=== PATIENT | female | born 1975 | race Caucasian/White ===

== ENCOUNTER 2019-02-07 22:21 | Emergency (ER) | payer OTHER ==
[~2019-02-07] VITALS: Wt 86.6 kg
--- NOTE | 2019-02-07 22:49 | ERD ---
ER Documentation Chief Complaint Chief Complaint Vaginal spotting HPI The patient is a 44-year-old female, presenting to the ER because of vaginal spotting for the last 17 days, she has not seen a hotel manager yet. She complains of vague and diffuse abdominal pain for the last 2 days with dysuria. He denies fever, chills, neck pain, chest pain, dyspnea. She denies vomiting, diarrhea, constipation. She normally has irregular menstrual period, denies smoking or drinking Past medical history: Fibroid, anemia Past surgical history: Gastric sleeve 3 months ago ROS All systems reviewed and are negative except as per history of present illness. Medications Home Meds Active Scripts Ibuprofen* (Motrin*) 600 Mg Tab, 600 MG PO Q6H PRN for PAIN, #20 TAB Prov:LINDA MURPHY MD 02/08/19 Allergies Allergies: Coded Allergies: No Known Allergy (Unverified , 02/07/19) Physical Exam Vitals Vital Signs Date Temp Pulse Resp B/P (MAP) Pulse Ox O2 O2 Flow FiO2 Time Delivery Rate 02/08/19 63 121/76 100 Room Air 02:22 (91) 02/08/19 51 16 123/77 100 Room Air 00:17 (92) 02/07/19 98.3 66 22 193/79 99 22:27 (117) Physical Exam Const: No acute distress. Head: Atraumatic. Eyes: Normal Conjunctiva. ENT: Normal External Ears, Nose and Mouth. Neck: Full range of motion. No meningismus. Resp: Clear to auscultation bilaterally. Cardio: Regular rate and rhythm. Abd: Soft, non distended, normal bowel sounds, minimal and vague and diffuse abdominal discomfort, no rigidity/rebound/CVA tenderness Skin: No petechiae or rashes. Back: No midline or flank tenderness. Ext: No cyanosis, or edema. Neur: Awake and alert. No focal deficit Psych: Normal Mood and Affect. Result Diagram: 02/07/19 2300 02/07/192299 Results 24 hrs Laboratory Tests Test 02/07/19 23:00 02/07/19 23:12 02/07/19 23:18 White Blood Count 7.8 10^3/ul Red Blood Count 3.99 10^6/ul Hemoglobin 10.1 g/dl Hematocrit 31.5 % Mean Corpuscular Volume 78.9 fl Mean Corpuscular Hemoglobin 25.3 pg Mean Corpuscular 32.1 g/dl Hemoglobin Concent Red Cell Distribution Width 14.0 % Platelet Count 416 10^3/UL Mean Platelet Volume 9.3 fl Immature Granulocytes % 0.900 % Neutrophils % 51.2 % Lymphocytes % 39.2 % Monocytes % 7.1 % Eosinophils % 0.8 % Basophils % 0.8 % Nucleated Red Blood Cells % 0.0 /100WBC Immature Granulocytes # 0.070 10^3/ul Neutrophils # 4.0 10^3/ul Lymphocytes # 3.0 10^3/ul Monocytes # 0.6 10^3/ul Eosinophils # 0.1 10^3/ul Basophils # 0.1 10^3/ul Nucleated Red Blood Cells # 0.0 10^3/ul Sodium Level 139 mmol/L Potassium Level 3.9 mmol/L Chloride Level 107 mmol/L Carbon Dioxide Level 23 mmol/L Anion Gap 9 Blood Urea Nitrogen 15 mg/dl Creatinine 0.68 mg/dl Est Glomerular Filtrat Rate mL/min > 60 mL/min Glucose Level 91 mg/dl Calcium Level 9.0 mg/dl Total Bilirubin 0.3 mg/dl Direct Bilirubin 0.00 mg/dl Indirect Bilirubin 0.3 mg/dl Aspartate Amino Transf (AST/SGOT) 18 IU/L Alanine 15 IU/L Aminotransferase (ALT/SGPT) Alkaline Phosphatase 62 IU/L Total Protein 7.3 g/dl Albumin 4.3 g/dl Globulin 3.00 g/dl Albumin/Globulin Ratio 1.43 Lipase 63 U/L Bedside Urine pH (LAB) 5.5 Bedside Urine Protein (LAB) 2+ Bedside Urine Glucose (UA) Negative Bedside Urine Ketones (LAB) Trace Bedside Urine Blood 3+ Bedside Urine Nitrite (LAB) Negative Bedside Urine Leukocyte Esterase Negative (L POC Beta HCG, Qualitative NEGATIVE Current Medications Medications Dose Sig/Cesar Start Time Status Last (Trade) Ordered Route PRN Stop Time Admin Dose Reason Admin Morphine 2 mg ONCE STAT 02/07/19 DC 02/07/19 Sulfate IV 22:54 23:06 (morphine) 02/07/19 22:58 Ondansetron 4 mg ONCE STAT 02/07/19 DC 02/07/19 HCl (Zofran IV 22:54 23:06 Inj) 02/07/19 22:58 Procedures/[address], [place] [address] Radiology Main Line: [phone] DIAGNOSTIC IMAGING REPORT Patient: JAYESH DENNISON : 1975 Age: 44 Sex: F MR #: [id number] DOS: 02/07/192253 Ordering MD: LINDA MURPHY MD Location: E/R Room/Bed: PROCEDURE: US abdomen limited CLINICAL INDICATION: Abdominal pain. TECHNIQUE: Multiple real-time sonographic images of the right upper quadrant of the abdomen were obtained. COMPARISON: None. FINDINGS: Liver parenchymal echogenicity is increased. Liver measures 18.8 cm in length. There is no visible focal liver lesion. There is no intrahepatic biliary ductal dilatation. Common bile duct measures 3 mm in diameter, within normal limits. Limited Doppler interrogation of main portal vein demonstrates antegrade flow. There is no gallstone, gallbladder wall thickening or pericholecystic fluid. No ascites is seen. Pancreas is obscured by the overlying bowel gas. Images of the right kidney demonstrate no hydronephrosis. Right kidney measures 10.3 cm. IMPRESSION: 1. Mild hepatomegaly and diffuse hepatic steatosis. 2. No visible focal liver lesion or biliary ductal dilatation. 3. No evidence of cholelithiasis or acute cholecystitis. RPTAT:HAJM Physician Moisés Date Time Electronically viewed and signed by Physician Moisés on 02/07/2019 23:55 RM/ CC: LINDA MURPHY MD [id number] [place] [address] Radiology Main Line: [phone] DIAGNOSTIC IMAGING REPORT Patient: JAYESH DENNISON : 1975 Age: 44 Sex: F MR #: [id number] DOS: 02/07/192253 Ordering MD: LINDA MURPHY MD Location: E/R Room/Bed: PROCEDURE: US Pelvis with transvaginal. CLINICAL INDICATION: Pelvic pain, vaginal bleeding. Last menstrual period 01/22/2019 TECHNIQUE: Multiple sonographic images of the pelvis were obtained utilizing a transabdominal and endovaginal technique. The images were reviewed on a PACS workstation. COMPARISON: None. FINDINGS: The uterus measures 13.1 x 6.8 x 8.4 cm. Multiple rounded heterogeneous echotexture uterine masses suggestive of fibroids are seen the largest a 4.3 cm submucosal fibroid in the central fundus and body. The thickness of the endometrium in the lower uterine segment equals 3.7 mm. The right ovary measures 3.3 x 2 x 2.3 cm and is unremarkable. The left ovary is not seen. Color flow and spectral analysis demonstrates normal arterial and venous flow in the right ovary. No adnexal mass or free intrapelvic fluid is seen. IMPRESSION: Enlarged uterus. Consistent with multiple uterine fibroids the largest a 4.3 cm submucosal fibroid in the central fundus and body. Left ovary not seen. Please see above. RPTAT: HJES .Beau Bernal MD, MD Date Time Electronically viewed and signed by .Beau Bernal MD, MD on 02/08/2019 01:54 .S/ CC: LINDA MURPHY MD [id number] MEDICAL MAKING DECISION: The patient is a 44-year-old female, presenting with acute abdominal pain, most likely due to fibroid and hepatic steatosis. She was treated with morphine 2 mg IV for pain, Zofran 4 mg IV for nausea with good response, is stable for outpatient follow-up The differential diagnoses considered include but are not limited to cholelith iasis, cholecystitis, choledocholithiasis, cholangitis, pancreatitis, hepatitis, gastritis, peptic ulcer disease, gastric ulcer, appendicitis, cystitis, diverticulitis, partial small bowel obstruction. Departure Diagnosis: Primary Impression: Fibroid Additional Impressions: Hepatic steatosis Anemia Condition: Good Comments She was discharged with Motrin The patient's blood pressure was elevated (>120/80) but appears stable without evidence of hypertension emergency or urgency. The patient was counseled about the risks of hypertension and urged to pursue outpatient monitoring and therapy within a week with their primary care physician. I discussed the findings with the patient. I advised the patient to follow-up with the primary physician in about 2-3 days for reevaluation and referral to gynecology, sooner if needed and return if any concern. Disclaimer: Inadvertent spelling and grammatical errors are likely due to EHR/dictation software use and do not reflect on the overall quality of patient care. Also, please note that the electronic time recorded on this note does not necessarily reflect the actual time of the patient encounter. LINDA MURPHY MD February 07, 2019 22:49
[2019-02-07] MEDS ORDERED: ONDANSETRON 4 MG INJ IV STA (22:54)
[2019-02-07] MEDS ORDERED: morphine 2 MG INJ IV STA (22:54)
[2019-02-08 00:17] VITALS: RESP 16
[2019-02-08] MEDS ORDERED: IBUP-1542 PO (02:08)
[2019-02-08 02:22] VITALS: BP 121/76; PULSE 63
== END 2019-02-08 02:23 | disposition home or self-care (01) ==
LOC: E/R 22:21
DX: D25.9 Leiomyoma of uterus, unspecified (principal); D64.9 Anemia, unspecified; K76.0 Fatty (change of) liver, not elsewhere classified; R10.2 Pelvic and perineal pain
CPT/HCPCS: 36415; 76705; 76830; 76856; 80053; 81003; 81025; 83690; 85025; 96374; 96375; 99285; J2270; J2405

== ENCOUNTER 2019-03-03 23:39 | Emergency (ER) | payer OTHER ==
[~2019-03-03] VITALS: Ht 152.4 cm; Wt 86.9 kg
[~2019-03-03 23:39] MED LIST: IBUP-1542 PO
[2019-03-03 23:42] VITALS: Ht 152.4 cm; Wt 86.9 kg
[2019-03-04] MEDS ORDERED: KETOROLAC 30 MG INJ IM STA (00:13)
--- NOTE | 2019-03-04 00:13 | ERD ---
ER Documentation Chief Complaint Chief Complaint R ANKLE SWELLING X 2 HOURS, PT DENIES INJURY HPI This is a 44-year-old female presents here to emerge department with complaints of right ankle pain that started 2 hours prior to arrival here in the emergency department. Patient stated she did not have any direct injury to her right ankle but while she was walking, missed a step, heard a popping sound to his right ankle. LMP: Denies headache, head injury, loss of consciousness, dizziness, neck pain, neck stiffness, throat pain, difficulty swallowing, difficulty breathing lying flat, shoulder pain, chest pain, back pain, abdominal pain, nausea, vomiting, constipation, diarrhea, urinary symptoms, or possibility being , loss of bowel and bladder control, trauma, injury, falls, difficulty walking due to pain, numbness or tingling sensation, calf pain, recent travel, recent major surgery in the last 3 weeks, calf pain, recent long travel, recent exposure to any illness, recent antibiotic use in the last 3 months, fever, chills, seizures. Past medical history: Surgical history: Social: Denies smoking, use of alcoholic beverages, use of illegal drugs. ROS All systems reviewed and are negative except as per history of present illness. Medications Home Meds Active Scripts Omeprazole* (Omeprazole*) 40 Mg Capsule.dr, 40 MG PO DAILY, #30 CAP Prov:PASILABAN,BRITTNEYAR F 03/04/19 Ibuprofen* (Motrin*) 800 Mg Tab, 800 MG PO Q6H PRN for PAIN AND OR ELEVATED TEMP, #30 TAB Prov:PASILABAN,BRITTNEYAR F 03/04/19 Ibuprofen* (Motrin*) 600 Mg Tab, 600 MG PO Q6H PRN for PAIN, #20 TAB Prov:LINDA MURPHY MD 02/08/19 Allergies Allergies: Coded Allergies: No Known Allergy (Unverified , 02/07/19) PMhx/Soc History of Surgery: Yes (gastric surgery ) Anesthesia Reaction: No Hx Neurological Disorder: No Hx Respiratory Disorders: No Hx Miscellaneous Medical Probl: Yes (anemia,fibroma) Hx Alcohol Use: No Hx Substance Use: No Hx Tobacco Use: No Physical Exam Vitals Physical Exam Const: No acute distress Head: Atraumatic Eyes: Normal Conjunctiva ENT: Normal External Ears, Nose and Mouth. Neck: Full range of motion. No meningismus. Resp: Clear to auscultation bilaterally Cardio: Regular rate and rhythm, no murmurs Abd: Soft, non tender, non distended. Normal bowel sounds Skin: No petechiae or rashes Back: No midline or flank tenderness Ext: No cyanosis, or edema. Right ankle: Swelling noted to lateral area. Tenderness to palpation to lateral area. Good and full range of motion. Right foot: No obvious deformity. No tenderness. Right pedal pulses within normal limits. Has good and full range of motion of right toes. Capillary refill to right lower extremity is less than 2 seconds. Bilateral knees are symmetrical. Bilateral hips are stable and unremarkable. Left lower extremity is unremarkable. No calf tenderness bilaterally. No neurovascular deficits. Neur: Awake and alert. No neurological deficits. Psych: Normal Mood and Affect Results 24 hrs Laboratory Tests Test 03/04/19 00:45 POC Beta HCG, Qualitative NEGATIVE Current Medications Medications Dose Sig/Cesar Start Time Status Last (Trade) Ordered Route PRN Stop Time Admin Dose Reason Admin Ketorolac 30 mg ONCE STAT 03/04/19 DC 03/04/19 Tromethamine IM 00:13 00:52 (Toradol) 03/04/19 00:15 Procedures/MDM Diagnostic tests: POC urine : Negative. X-ray of the right ankle: No fracture or dislocation of the right ankle. Treatment: Toradol IM. Claudio wrap. Crutches and crutch training was also provided by EMT. Re-evaluation: No neurovascular deficits prior to and after the application of Claudio wrap. Differential diagnosis I have low suspicion for displaced fracture, open fracture, compartment syndrome, DVT. Final diagnosis: Ankle pain. Prescription: Motrin. Omeprazole. Follow-up with PCP in the next 24-48 hours. Come back here in the emergency department for any new symptoms or any worsening symptoms. All questions and concerns were answered. Patient and family members verbalized understanding and agreed with plan of care. Hemodynamically stable on discharge. Departure Diagnosis: Primary Impression: Ankle pain Condition: Stable Additional Instructions: Follow-up with PCP in the next 24-48 hours. Come back here in the emergency department for any new symptoms or any worsening symptoms. DIAN SALAS Mar 04, 2019 00:13
[2019-03-04] MEDS ORDERED: IBUP800T48 PO (03:47)
[2019-03-04] MEDS ORDERED: OMEP40CA6 PO (03:48)
[2019-03-04 04:10] VITALS: BP 132/64; PULSE 84; RESP 17
== END 2019-03-04 04:10 | disposition home or self-care (01) ==
LOC: FTE 23:39
DX: M25.571 Pain in right ankle and joints of right foot (principal)
CPT/HCPCS: 73610; 81025; 96372; 99284; J1885

== ENCOUNTER 2019-04-18 09:25 | Emergency (ER) | payer OTHER ==
[~2019-04-18] VITALS: Wt 78.0 kg
[~2019-04-18 09:25] MED LIST changes: +HYDR-4011 PO; +IBUP800T48 PO; +NAPR-985 PO; +NITR-58 PO; +NORE5TAB15 PO; +OMEP40CA6 PO
[2019-04-18] MEDS ORDERED: ONDANSETRON 4 MG INJ IV STA (10:22)
[2019-04-18] MEDS ORDERED: SOD CHLORIDE 0.9% 1,000 ML IV STA (10:22)
[2019-04-18] MEDS ORDERED: morphine 4 MG/ML VIAL IV STA (10:22)
--- NOTE | 2019-04-18 10:28 | ERD ---
ER Documentation Chief Complaint Chief Complaint has fibroids, vag bleeding HPI This is a 44-year-old female patient who presents emergency see room with complaint of severe pelvic pain and increased vaginal bleeding. Patient states she has been diagnosed with fibroids and is awaiting hysterectomy. States she was seen at urgent care yesterday for severe pain and pain has continued today. Her cosmetics counter manager placed her on unknown control pills 2 weeks ago to treat bleeding and she states it has not improved. States she is taking iron for her anemia. States she has appointment with Dr. Daniel Rojo, surgeon, tomorrow. States that she is using pads and going through approximately 2 pads per hour. Patient had endometrial biopsy on March 13 that showed benign polyps. Patient is alert, appropriate, mild distress due to pain and hemodynamically stable at time of evaluation. ROS All systems reviewed and are negative except as per history of present illness. Medications Home Meds Active Scripts Naproxen* (Naprosyn*) 500 Mg Tablet, 500 MG PO BID PRN for PAIN AND/OR INFLAMMATION, #30 TAB Prov:PHI MCDANIEL PA-C 04/19/19 Norethindrone (Aygestin) 5 Mg Tab, 5 MG PO TID, #30 TAB Prov:PHI MCDANIEL PA-C 04/19/19 Hydrocodone/Acetaminophen (Steptoe 5-325 Tablet) 1 Each Tablet, 1 EACH PO TID PRN for PAIN for 5 Days, #7 TAB Prov:JENNIFER JESUS NP 04/18/19 Nitrofurantoin Monohyd Macrocr* (Macrobid*) 100 Mg Capsr, 100 MG PO BID for 5 Days, #10 CAP Prov:JENNIFER JESUS NP 04/18/19 Omeprazole* (Omeprazole*) 40 Mg Capsule.dr, 40 MG PO DAILY, #30 CAP Prov:PASILABRITTNEY VOGTAR F 03/04/19 Ibuprofen* (Motrin*) 800 Mg Tab, 800 MG PO Q6H PRN for PAIN AND OR ELEVATED TEMP, #30 TAB Prov:PASILABAN,BRITTNEYAR F 03/04/19 Ibuprofen* (Motrin*) 600 Mg Tab, 600 MG PO Q6H PRN for PAIN, #20 TAB Prov:LINDA MURPHY MD 02/08/19 Allergies Allergies: Coded Allergies: No Known Allergy (Unverified , 02/07/19) PMhx/Soc Medical and Surgical Hx: pt denies Medical Hx History of Surgery: No Anesthesia Reaction: No Hx Neurological Disorder: No Hx Respiratory Disorders: No Hx Cardiac Disorders: No Hx Psychiatric Problems: No Hx Miscellaneous Medical Probl: No Hx Alcohol Use: No Hx Substance Use: No Hx Tobacco Use: No Smoking Status: Never smoker FmHx Family History: diabetes Physical Exam Vitals Vital Signs Date Temp Pulse Resp B/P (MAP) Pulse Ox O2 O2 Flow FiO2 Time Delivery Rate 04/18/19 98.6 50 18 126/70 95 Room Air 13:28 (88) 04/18/19 98.1 63 18 150/78 99 09:27 (102) Physical Exam Const: No acute distress Head: Atraumatic Eyes: Normal Conjunctiva, PERRL, EOMI ENT: Normal External Ears, Nose and Mouth. Pharynx pink, moist, no lesions, no exudate, no petechiae. Neck: Full range of motion. No meningismus. No lymphadenopathy Resp: Clear to auscultation bilaterally Cardio: Regular rate and rhythm, no murmurs Abd: Soft, non distended. Normal bowel sounds, no guarding, no rebound, tenderness over RLQ/LLQ Skin: No petechiae or rashes, no bruising, skin turgor less than 2 seconds, skin color normal for ethnicity Back: No midline or flank tenderness, No CVT Neur: Awake and alert, clear speech, steady gait Psych: Normal Mood and Affect Result Diagram: 04/18/19 1035 04/18/19 1035 Results 24 hrs Laboratory Tests Test 04/18/19 10:35 04/18/19 10:36 04/18/19 10:44 White Blood Count 6.9 10^3/ul Red Blood Count 4.80 10^6/ul Hemoglobin 12.0 g/dl Hematocrit 39.1 % Mean Corpuscular Volume 81.5 fl Mean Corpuscular Hemoglobin 25.0 pg Mean Corpuscular 30.7 g/dl Hemoglobin Concent Red Cell Distribution Width 14.9 % Platelet Count 327 10^3/UL Mean Platelet Volume 9.4 fl Immature Granulocytes % 0.300 % Neutrophils % 65.2 % Lymphocytes % 25.1 % Monocytes % 7.6 % Eosinophils % 1.4 % Basophils % 0.4 % Nucleated Red Blood Cells % 0.0 /100WBC Immature Granulocytes # 0.020 10^3/ul Neutrophils # 4.5 10^3/ul Lymphocytes # 1.7 10^3/ul Monocytes # 0.5 10^3/ul Eosinophils # 0.1 10^3/ul Basophils # 0.0 10^3/ul Nucleated Red Blood Cells # 0.0 10^3/ul Prothrombin Time 13.3 Sec Prothrombin Time Ratio 1.0 INR International 1.00 Normalized Ratio Activated Partial Thromboplast 31.7 Sec Time Sodium Level 140 mmol/L Potassium Level 4.0 mmol/L Chloride Level 105 mmol/L Carbon Dioxide Level 29 mmol/L Anion Gap 6 Blood Urea Nitrogen 13 mg/dl Creatinine 0.76 mg/dl Est Glomerular Filtrat > 60 mL/min Rate mL/min Glucose Level 92 mg/dl Calcium Level 9.4 mg/dl Urine Color RED Urine Clarity CLEAR Urine pH 6.0 Urine Specific [place] 1.006 Urine Ketones NEGATIVE mg/dL Urine Nitrite NEGATIVE mg/dL Urine Bilirubin NEGATIVE mg/dL Urine Urobilinogen NEGATIVE mg/dL Urine Leukocyte Esterase TRACE Emanuel/ul Urine Microscopic RBC > 182 /HPF Urine Microscopic WBC 14 /HPF Urine Hemoglobin 3+ mg/dL Urine Glucose NEGATIVE mg/dL Urine Total Protein 1+ mg/dl POC Beta HCG, Qualitative NEGATIVE Current Medications Medications Dose Sig/Cesar Start Time Status Last (Trade) Ordered Route PRN Stop Time Admin Dose Reason Admin Sodium 1,000 ml @ Q1H STAT 04/18/19 DC 04/18/19 Chloride 1,000 mls/hr IV 10:22 04/18/19 10:43 11:21 Morphine 4 mg ONCE STAT 04/18/19 DC 04/18/19 Sulfate IV 10:22 04/18/19 10:42 (morphine) 10:28 Ondansetron 4 mg ONCE STAT 04/18/19 DC 04/18/19 HCl (Zofran IV 10:22 04/18/19 10:43 Inj) 10:28 Procedures/MDM PROCEDURES/MDM DIAGNOSTIC IMAGING: Read by radiologist. US PELVIS IMPRESSION: 1. Enlarged heterogeneous uterus with multiple leiomyomas the largest measuring 5 cm. 2. Homogeneous slightly thickened endometrium maximal AP diameter 1.16 cm. 3. Nonvisualization of the left ovary. 4. Unremarkable right ovary without ultrasonic evidence of ovarian torsion. 5. No adnexal masses or free fluid demonstrated. LAB INTERPRETATION: CBC: no leukocytosis, normal H/H BMP: no electrolyte disturbance, normal kidney function, normo glycemia, neg HCG UA: neg nit, +trace leuks, +WBC -Medications: NS, MS, Zofran Patient tolerated medication well with no adverse reactions. Patient reported improvement in pain. -Consultation: Dr. Lowe MDM: Pt reports improvement in pain and overall well-being with today's treatment. As patient remains hemodynamically stable, is not anemic today, and has appo intment scheduled with her surgeon tomorrow, no surgical consult was performed today. Differential includes ectopic , failed , neoplasm, fibroid, hemorrhage, anemia, endometriosis. She will discharged home to follow-up with her surgeon tomorrow. She is to return sooner for fevers, hemorrhaging, new worsening symptoms. Current signs or symptoms do not suggest appendicitis, acu te surgical abdomen, additional concerning signs or symptoms or conditions. The patient was stable with no new complaints during the ER course. Clinically, there is no current evidence to suggest meningitis, sepsis, acute abdomen, pneumonia, stroke, acute coronary syndrome, pulmonary embolism, aortic dissection or any other emergent condition appearing to require further evaluation or hospitalization. Patient counseled regarding my diagnostic impression and care plan. Prior to discharge all questions answered. Pt agrees with treatment plan and understands strict return precautions. Antibiotics initiated today for UTI. There is low suspicion for pyelonephritis, vaginitis, STI, or interstitial cystitis due to absence of clinical findings that would support a diagnosis more serious than uncomplicated UTI. These diagnoses have been considered and excluded clinically. DISPOSITION and PLAN: RX: Steptoe, Macrobid. Pt has ibuprofen at home. Instructed to continue with other prescribed medications such as iron supplement and hormones. The patient has been discharge home to follow-up with community physician. Departure Diagnosis: Primary Impression: Uterine fibroid Uterine leiomyoma location: intramural Qualified Codes: D25.1 - Intramural leiomyoma of uterus Additional Impressions: Vaginal bleeding Cystitis Condition: Stable JENNIFER JESUS NP Apr 18, 2019 10:28
[2019-04-18 13:28] VITALS: BP 126/70; PULSE 50; RESP 18
== END 2019-04-18 13:41 | disposition home or self-care (01) ==
LOC: FTE 09:25
DX: D25.1 Intramural leiomyoma of uterus (principal); N93.9 Abnormal uterine and vaginal bleeding, unspecified; N30.90 Cystitis, unspecified without hematuria
CPT/HCPCS: 36415; 76856; 80048; 81001; 81025; 85025; 85610; 85730; 86850; 86900; 86901; 96374; 96375; 99285; J2270; J2405; J7030

== ENCOUNTER 2019-04-18 21:34 | Emergency (ER) | payer OTHER ==
[~2019-04-18] VITALS: Ht 165.1 cm; Wt 90.0 kg
[2019-04-18 21:35] VITALS: Ht 165.1 cm; Wt 90.0 kg
[2019-04-18] MEDS ORDERED: SOD CHLORIDE 0.9% 1,000 ML IV ONE (23:00)
[2019-04-19] MEDS ORDERED: morphine 4 MG/ML VIAL IV STA (00:56)
[2019-04-19 02:12] VITALS: BP 145/68; PULSE 74; RESP 18
--- NOTE | 2019-04-19 04:39 | ERD ---
ER Documentation Chief Complaint Chief Complaint PT REPORTS HX FIBROIDS AND BLEEDING X 5 DAYS HPI 44-year-old female presents to the emergency department complaining of increasing vaginal bleeding for the past 5 days. She has some mild suprapubic pain. She was seen here earlier and was discharged home with a diagnosis of uterine fibroids and advised to follow-up with her [facility]ENTAL CHAIRSIDE ASSISTANT physician. She returns today because she saw a significant amount of blood while out in public today and she is worried about it. She denies any dizziness, syncope, abdominal pain, or other symptoms at this time. Symptoms are moderate to severe cu rrently. ROS All systems reviewed and are negative except as per history of present illness. Medications Home Meds Active Scripts Naproxen* (Naprosyn*) 500 Mg Tablet, 500 MG PO BID PRN for PAIN AND/OR INFLAMMATION, #30 TAB Prov:PHI MCDANIEL PA-C 04/19/19 Norethindrone (Aygestin) 5 Mg Tab, 5 MG PO TID, #30 TAB Prov:PHI MCDANIEL PA-C 04/19/19 Hydrocodone/Acetaminophen ([place] 5-325 Tablet) 1 Each Tablet, 1 EACH PO TID PRN for PAIN for 5 Days, #7 TAB Prov:JENNIFER JESUS NP 04/18/19 Nitrofurantoin Monohyd Macrocr* (Macrobid*) 100 Mg Capsr, 100 MG PO BID for 5 Days, #10 CAP Prov:JENNIFER JESUS NP 04/18/19 Omeprazole* (Omeprazole*) 40 Mg Capsule.dr, 40 MG PO DAILY, #30 CAP Prov:MARILUZILABRITTNEY VOGTAR F 03/04/19 Ibuprofen* (Motrin*) 800 Mg Tab, 800 MG PO Q6H PRN for PAIN AND OR ELEVATED TEMP, #30 TAB Prov:PASILABRITTNEY VOGTAR F 03/04/19 Ibuprofen* (Motrin*) 600 Mg Tab, 600 MG PO Q6H PRN for PAIN, #20 TAB Prov:LINDA MURPHY MD 02/08/19 Allergies Allergies: Coded Allergies: No Known Allergy (Unverified , 02/07/19) PMhx/Soc History of Surgery: Yes (tummy tuck?) Anesthesia Reaction: No Hx Neurological Disorder: No Hx Respiratory Disorders: No Hx Cardiac Disorders: No Hx Psychiatric Problems: No Hx Miscellaneous Medical Probl: Yes (fibroids,anemia) Hx Alcohol Use: No Hx Substance Use: No Hx Tobacco Use: No Smoking Status: Never smoker FmHx Family History: No diabetes Physical Exam Vitals Vital Signs Date Temp Pulse Resp B/P (MAP) Pulse Ox O2 O2 Flow FiO2 Time Delivery Rate 04/19/19 98.8 74 18 145/68 100 Room Air 02:12 (93) 04/18/19 98.8 73 24 165/90 99 21:35 (115) Physical Exam Const: No acute distress Head: Atraumatic Eyes: Normal Conjunctiva ENT: Normal External Ears, Nose and Mouth. Neck: Full range of motion. No meningismus. Resp: Clear to auscultation bilaterally Cardio: Regular rate and rhythm, no murmurs Abd: Soft, non tender, non distended. Normal bowel sounds. No rebound tenderness or guarding. No McBurney's point tenderness. No suprapubic tenderness to palpation. Skin: No petechiae or rashes Back: No midline or flank tenderness Ext: No cyanosis, or edema Neur: Awake and alert Psych: Normal Mood and Affect Result Diagram: 04/18/19225104/[id number]/192251 Results 24 hrs Laboratory Tests Test 04/18/19 22:52 White Blood Count 8.4 10^3/ul Red Blood Count 4.17 10^6/ul Hemoglobin 10.7 g/dl Hematocrit 33.5 % Mean Corpuscular Volume 80.3 fl Mean Corpuscular Hemoglobin 25.7 pg Mean Corpuscular Hemoglobin Concent 31.9 g/dl Red Cell Distribution Width 14.8 % Platelet Count 344 10^3/UL Mean Platelet Volume 9.2 fl Immature Granulocytes % 0.200 % Neutrophils % 62.9 % Lymphocytes % 28.7 % Monocytes % 6.3 % Eosinophils % 1.4 % Basophils % 0.5 % Nucleated Red Blood Cells % 0.0 /100WBC Immature Granulocytes # 0.020 10^3/ul Neutrophils # 5.3 10^3/ul Lymphocytes # 2.4 10^3/ul Monocytes # 0.5 10^3/ul Eosinophils # 0.1 10^3/ul Basophils # 0.0 10^3/ul Nucleated Red Blood Cells # 0.0 10^3/ul Sodium Level 140 mmol/L Potassium Level 4.1 mmol/L Chloride Level 107 mmol/L Carbon Dioxide Level 25 mmol/L Anion Gap 8 Blood Urea Nitrogen 11 mg/dl Creatinine 0.80 mg/dl Est Glomerular Filtrat Rate mL/min > 60 mL/min Glucose Level 101 mg/dl Calcium Level 8.8 mg/dl Total Bilirubin 0.5 mg/dl Direct Bilirubin 0.00 mg/dl Indirect Bilirubin 0.5 mg/dl Aspartate Amino Transf (AST/SGOT) 14 IU/L Alanine Aminotransferase (ALT/SGPT) 21 IU/L Alkaline Phosphatase 57 IU/L Total Protein 7.1 g/dl Albumin 3.9 g/dl Globulin 3.20 g/dl Albumin/Globulin Ratio 1.21 Current Medications Medications Dose Sig/Cesar Start Time Status Last (Trade) Ordered Route PRN Stop Time Admin Dose Reason Admin Sodium 1,000 ml @ Q1H ONCE 04/18/19 DC 04/18/19 Chloride 1,000 mls/hr IV 23:00 04/18/19 22:56 23:59 Morphine 4 mg ONCE STAT 04/19/19 DC 04/19/19 Sulfate IV 00:56 04/19/19 01:04 (morphine) 00:57 Procedures/MDM 44-year-old female presents emergency department complaining of increasing vaginal bleeding for the past 5 days. Examination was within normal limits. CBC showed no evidence of significant leukocytosis or anemia. Chemistry panel was within normal limits. No indication for repeat ultrasound at this time as the patient had one within the last 24 hours which showed uterine fibroids. I did discuss this patient's case with [facility]AIRS[facility]IST[facility] physician, Dr. Owen, who recommended prescription for norethindrone and 24 to 48-hour follow-up with [facility]ENTAL CHAIRSIDE ASSISTANT physician. Patient was otherwise stable for discharge and further outpatient management. Patient's vital signs are stable and she is nontoxic and well-appearing. I doubt septic , ectopic , tubo-ovarian abscess, ovarian torsion, or other emergent process. No evidence of life-threatening pathology at time of discharge. Pt/family in agreement with discharge plan/diagnosis. Pt/family advised to return immediately with any new or worsening symptoms. Follow-up with primary care physician within the next 1-2 days. Departure Diagnosis: Primary Impression: Vaginal bleeding Condition: Fair Patient Instructions: What Are Fibroids? Referrals: ANA ROSA GARCIA (PCP) Additional Instructions: SPECIALIST: YOU HAVE A MEDICAL CONDITION WHICH REQUIRES YOU TO SEE A SPECIALIST WITHIN THE NEXT 1-2 DAYS. PLEASE FOLLOW UP WITH YOUR PRIMARY PHYSICIAN FOR REFFERAL.IF YOU DO NOT HAVE A PRIMARY CARE PHYSICIAN AND/OR YOU CAN NOT AFFORD TO SEE A PHYSICIAN THE FOLLOWING RESOURCES HAVE BEEN SUPPLIED TO YOU. IT IS YOUR RESPONSIBILITY TO BE SEEN BY THE SPECIALIST: PHI CABEZAS PA-C Apr 19, 2019 04:39
== END 2019-04-19 02:20 | disposition home or self-care (01) ==
LOC: E/R 21:34 → FTE 04-19 02:20
DX: N93.9 Abnormal uterine and vaginal bleeding, unspecified (principal)
CPT/HCPCS: 36415; 80053; 85025; 96361; 96374; 99284; J2270; J7030